=== PATIENT | female | born 1945 | race African-American/Black ===

== ENCOUNTER 2017-03-30 07:39 | Outpatient (CLI) | payer MEDICARE ==
[~2017-03-30] VITALS: Ht 160 cm; Wt 66.4 kg
[2017-03-30] MEDS ORDERED: LISINOPRIL-HCTZ1 T13 PO (08:12)
[2017-03-30] MEDS ORDERED: AMBIEN5 MG PO (08:12)
[2017-03-30] MEDS ORDERED: NORVASC10 MG PO (08:12)
[2017-03-30] MEDS ORDERED: NORCO 7.5/325 T1 TA1 PO (08:13)
[2017-03-30 08:19] VITALS: BP 159/80; Ht 160 cm; Wt 66.4 kg
[2017-03-30] MEDS ORDERED: ADVAIR 100/501 DISK INH (08:28)
[2017-03-30 08:48] LABS: BASOPHILS 2.1 % (0-2); EOSINOPHILS 2.1 % (0-7); HEMATOCRIT 34.2 % (36.0-48.0); HEMOGLOBIN 11.1 g/dL (12-16); LYMPHOCYTES 19.2 % (15-50); MCH 32.5 pg (26.0-34.0); MCHC 32.5 g/dL (31.0-37.0); MEAN PLATELET VOLUME 10.3 fL (7.4-10.4); NEUTROPHILS 63.6 % (40-80); PLATELET COUNT 557 10x3/uL (130-400); RBC 3.42 10x6/uL (4.00-5.40); RDW 15.9 % (11.5-14.5); WBC 4.9 10x3/uL (4.8-10.8)
[2017-03-30 09:02] LABS: CALC OSMOLALITY 286 mosm/kg (275-300); CALCIUM 9.1 mg/dL (8.5-10.1); CARBON DIOXIDE 30.9 mmol/L (21.0-32.0); CHLORIDE - SERUM 105 mmol/L (98-107); CREATININE - SERUM 0.5 mg/dL (0.6-1.3); GLUCOSE 94 mg/dL (74-106); POTASSIUM - SERUM 3.8 mmol/L (3.5-5.1); SODIUM 144 mmol/L (136-145); UREA NITROGEN 13 mg/dL (7-18); eGFR NON AFRICAN AMERICAN > 90 mL/min (90-120)
[2017-03-30 09:11] LABS: INR 1.05 (0.85-1.17); PROTIME 13.5 SECONDS (11.6-15.0)
[2017-03-30 09:12] LABS: APTT 34.9 SECONDS (22.8-39.4)
== END 2017-03-30 15:00 | disposition home or self-care (01) ==
LOC: D.SP 07:39
PROVIDERS: Specialist
DX: R53.83 Other fatigue (principal); D53.9 Nutritional anemia, unspecified; I10 Essential (primary) hypertension; Z01.812 Encounter for preprocedural laboratory examination

== ENCOUNTER → 2017-11-02 17:19 | Outpatient (CLI) | payer MEDICARE ==
[2017-03-30 08:19] VITALS: BMI 25.9
[~2017-11-02 17:19] MED LIST: ADVAIR 100/501 DISK INH; AMBIEN5 MG PO; LISINOPRIL-HCTZ1 T13 PO; NORCO 7.5/325 T1 TA1 PO; NORVASC10 MG PO
== END | disposition home or self-care (01) ==
LOC: D.MAMMO 11:30
DX: Z12.31 Encounter for screening mammogram for malignant neoplasm of breast (principal)

== ENCOUNTER → 2017-12-10 13:02 | Outpatient (CLI) | payer MEDICARE ==
[2017-03-30 08:19] VITALS: BMI 25.9
== END | disposition home or self-care (01) ==
LOC: D.LAB 13:02
DX: R10.84 Generalized abdominal pain (principal); K59.00 Constipation, unspecified

== ENCOUNTER → 2018-01-14 15:11 | Outpatient (CLI) | payer MEDICARE ==
[2017-03-30 08:19] VITALS: BMI 25.9
[2018-01-14 16:26] LABS: BASOPHILS 1.5 % (0-2); EOSINOPHILS 1.5 % (0-7); HEMATOCRIT 31.4 % (36.0-48.0); HEMOGLOBIN 10.1 g/dL (12-16); IMMATURE GRANULOCYTES 1.9 % (0-5); LYMPHOCYTES 14.6 % (15-50); MCH 32.7 pg (26.0-34.0); MCHC 32.2 g/dL (31.0-37.0); MCV 101.6 fL (80.0-100.0); MEAN PLATELET VOLUME 10.7 fL (7.4-10.4); MONOCYTES 11.3 % (2-11); NEUTROPHILS 69.2 % (40-80); PLATELET COUNT 581 10x3/uL (130-400); RBC 3.09 10x6/uL (4.00-5.40); RDW 16.3 % (11.5-14.5); WBC 4.7 10x3/uL (4.8-10.8)
[2018-01-14 16:58] LABS: THYROID STIMULATING HORMONE 1.1 uIU/mL (0.36-3.74)
== END | disposition home or self-care (01) ==
LOC: D.LABREF 15:11
PROVIDERS: Internal Medicine Gastroenterology
DX: Z86.010 Personal history of colon polyps (principal); D64.9 Anemia, unspecified; R19.7 Diarrhea, unspecified; R10.84 Generalized abdominal pain

== ENCOUNTER 2018-02-09 08:00 | Outpatient (CLI) | payer MEDICARE ==
[2017-03-30 08:19] VITALS: BMI 25.9
== END 2018-02-09 08:01 | disposition home or self-care (01) ==
LOC: D.MAMMO 08:00
DX: R92.8 Other abnormal and inconclusive findings on diagnostic imaging of breast (principal)

== ENCOUNTER → 2018-11-01 13:52 | Outpatient (CLI) | payer MEDICARE ==
[2017-03-30 08:19] VITALS: BMI 25.9
== END | disposition home or self-care (01) ==
LOC: D.CT 10-29 10:00
PROVIDERS: ATTEND Internal Medicine Hematology & Oncology
DX: D47.1 Chronic myeloproliferative disease (principal); D64.9 Anemia, unspecified; D69.49 Other primary thrombocytopenia

== ENCOUNTER → 2019-09-12 10:34 | Outpatient (CLI) | payer MEDICARE ==
[2017-03-30 08:19] VITALS: BMI 25.9
== END | disposition home or self-care (01) ==
LOC: D.US 08:30
PROVIDERS: ATTEND Internal Medicine Hematology & Oncology
DX: D47.1 Chronic myeloproliferative disease (principal); D64.9 Anemia, unspecified; D69.49 Other primary thrombocytopenia

== ENCOUNTER 2019-09-15 05:24 | Outpatient (CLI) | payer MEDICARE ==
[~2019-09-15] VITALS: Ht 160 cm; Wt 65.0 kg
[2019-09-15 06:15] LABS: APTT 37.9 SECONDS (22.8-39.4); CALC OSMOLALITY 287 mosm/kg (275-300); CALCIUM 8.9 mg/dL (8.5-10.1); CARBON DIOXIDE 29.6 mmol/L (21.0-32.0); CHLORIDE - SERUM 105 mmol/L (98-107); CREATININE - SERUM 0.7 mg/dL (0.6-1.3); GLUCOSE 101 mg/dL (74-106); INR 1.12 (0.85-1.17); POTASSIUM - SERUM 3.6 mmol/L (3.5-5.1); PROTIME 14.3 SECONDS (11.6-15.0); SODIUM 143 mmol/L (136-145); UREA NITROGEN 20 mg/dL (7-18); eGFR NON AFRICAN AMERICAN 87 mL/min (90-120)
[2019-09-15] MEDS ORDERED: OMEPRAZOLE20 M1 PO (07:04)
[2019-09-15 07:17] VITALS: BP 130/75; Ht 160 cm; Wt 65.0 kg
[2019-09-15 07:34] LABS: BASOPHILS 0.6 % (0-2); EOSINOPHILS 1.7 % (0-7); HEMATOCRIT 29.7 % (36.0-48.0); HEMOGLOBIN 9.4 g/dL (12-16); IMMATURE GRANULOCYTES 2.9 % (0-5); MCHC 31.6 g/dL (31.0-37.0); MCV 104.2 fL (80.0-100.0); MEAN PLATELET VOLUME 9.9 fL (7.4-10.4); MONOCYTES 12.2 % (2-11); NEUTROPHILS 67.6 % (40-80); PLATELET COUNT 644 10x3/uL (130-400); RBC 2.85 10x6/uL (4.00-5.40); RDW 16.8 % (11.5-14.5); WBC 6.5 10x3/uL (4.8-10.8)
--- NOTE | 2019-09-15 09:26 | NUR ---
[id number] PT C/O BACK AND LEFT LEG PAIN SPOKE WITH DR CHAVARRIA VIA PHONE. WILL RX WITH PERCOCET
== END 2019-09-15 10:55 ==
LOC: D.SP 05:24 → D.CT 08:00 → D.SP 08:00
PROVIDERS: General Practice; ATTEND Internal Medicine Hematology & Oncology
DX: D47.1 Chronic myeloproliferative disease (principal); D64.9 Anemia, unspecified; D69.49 Other primary thrombocytopenia; I10 Essential (primary) hypertension

== ENCOUNTER 2020-03-27 17:15 | Outpatient (CLI) | payer MEDICARE ==
[2019-09-15 07:17] VITALS: BMI 25.3
[~2020-03-27 17:15] MED LIST changes: +OMEPRAZOLE20 M1 PO
== END 2020-03-27 23:59 | disposition home or self-care (01) ==
LOC: D.MAMMO 17:15
PROVIDERS: ATTEND Family Medicine
DX: Z12.31 Encounter for screening mammogram for malignant neoplasm of breast (principal)

== ENCOUNTER → 2020-11-26 10:43 | Outpatient (CLI) | payer MEDICARE ==
[2019-09-15 07:17] VITALS: BMI 25.3
== END | disposition home or self-care (01) ==
LOC: D.ECHO 10:05
PROVIDERS: ATTEND Internal Medicine Cardiovascular Disease
DX: R94.31 Abnormal electrocardiogram [ECG] [EKG] (principal)

== ENCOUNTER → 2020-12-06 08:30 | Outpatient (CLI) | payer MEDICARE ==
[2019-09-15 07:17] VITALS: BMI 25.3
== END | disposition home or self-care (01) ==
LOC: D.HCCARDIO 08:30
PROVIDERS: ATTEND Internal Medicine Cardiovascular Disease
DX: I25.10 Atherosclerotic heart disease of native coronary artery without angina pectoris (principal)

== ENCOUNTER 2020-12-25 07:05 | Day surgery (SDC) | payer MEDICARE ==
[~2020-12-25] VITALS: Ht 160 cm; Wt 62.7 kg
--- NOTE | ~2020-12-25 | HEMODYNAMI ---
PATIENT:ANNALISE SANTIAGO MEDICAL RECORD: [id number] : 49 LOCATION:[facility] ADMISSION DATE: 12/25/20 Generatedon:19:09 Patient name: ANNALISE SANTIAGO Patient #: [id number] SSN: [id number] : 1945 Date of study: 12/25/2020 Page: Of Hemodynamic Procedure Report Patient Data Patient Demographics Procedure consent was obtained First Name: ANNALISE Gender: Female Last Name: PAMELA : 1945 [facility] Initial: GAGAN Age: 75 year(s) Patient #: [id number] Race: Black SSN: [id number] Additional ID: [id number] Contact details Address: [address] [place] [address] State: [place] City: [facility] Zip code: [address] Past Medical History Performed procedures and imaging results Date Procedure Procedure Results Comments Stress testing Positive->Intermediate with SPECT MPI risk Allergies Allergen Reaction Date Comments Reported Other allergy 12/25/2020 codeine Admission Admission Data Admission Date: 12/25/2020 Admission Time: 7:05 Admit Source: Other Lab Results Lab Result Date: 12/25/2020 Lab Result Time: 0:00 Biochemistry Name Units Result Min Max BUN mg/dl 18 --(---*)-- 7 18 Creatinine mg/dl 0.8 --(-*--)-- 0.6 1.3 eGFR ml/min 90 --(*---)-- 90 120 AM CBC Name Units Result Min Max Hematocrit % 27.4 *-(----)-- 42 54 Hemoglobin g/dl 8.5 *-(----)-- 13.5 17.5 Procedure Procedure Types Cath Procedure Diagnostic Procedure [facility] w/Coronaries Sedation Charges Moderate Sedation 10-24 minutes Procedure Description Procedure Date Procedure Date: 12/25/2020 Procedure Start Time: 8:48 Procedure End Time: 9:07 Procedure Staff Name Function Stefani Chowdhury RN Nurse Dale Barrett MD Performing Physician Heather Hodge RT Scrub Ashley Cruz RT Monitor Procedure Data Cath Procedure Fluoroscopy Diagnostic fluoroscopy Total fluoroscopy Time: 2 time: 2 min min Diagnostic fluoroscopy Total fluoroscopy dose: 147 dose: 147 mGy mGy Contrast Material Contrast Material Type Amount (ml) Isovue 370 68 Entry Location Entry Primary Successful Side Size Upsize Upsize Entry Closure Succes sful Closure Location (Fr) 1 (Fr) 2 (Fr) Remarks Device Remarks Femoral Right 5 Fr Exoseal artery Estimated blood loss: 5 ml Diagnostic catheters Device Type Used For End Catheter Placement MULTIPACK JL 4.0 5Fr Procedure catheter MULTIPACK 3DRC 5Fr Procedure catheter DIAGNOSTIC AL1 5Fr Procedure catheter ([id number]) MULTIPACK Pigtail 5 Fr Procedure catheter Procedure Complications No complications Procedure Medications Medication Administration Route Dosage 0.9% NaCl I.V. 100 ml/hr Heparin Flush Bag added to field 2 bags (1000units/500ml NS) Oxygen etCO2 Nasal cannula 2 l/min Lidocaine 2% added to field 20 Versed I.V. 1 mg Fentanyl I.V. 50 mcg Versed I.V. 0.5 mg Versed I.V. 0.5 mg Fentanyl I.V. 25 mcg Radial Cocktail added to field 1 syringe (Verapamil 2mg/Nitro 400mcg/Heparin 1500units) Hemodynamics Rest HGB: 8.5 (g/dl) Heart Rate: 49 (bpm) Pressure Samples Time Site Value (mmHg) Purpose Heart Use Rate(bpm) 9:01 LV 138/17,43 Snapshot 52 9:01 AO 137/60(90) Pullback 52 9:01 LV 137/5,20 Pullback 52 Gradients Valve Time Site 1 Site 2 Mean SEP/DFP Peak To Heart Use (mmHg) (sec/min) Peak Rate (mmHg) (bpm) Aortic 9:01 LV AO 5 19 0 52 137/5,20 137/60(90) Calculations Valve P-P Mean Valve Index Valve Source Name Gradient Area Flow (cm2) Aortic 0 5 0 5 Snapshots Pre Cath Intra NCS Post Cath Vital Signs Time Heart Resp SPO2 etCO2 NIBP (mmHg) Rhythm Pain Sedation Rate (ipm) (%) (mmHg) Status Level (bpm) 8:32:19 50 11 92 138/75(115) SB 0 (11) 10(A) , No pain 8:36:29 49 10 97 138/74(117) SB 0 (11) 10(A) , No pain 8:40:41 49 10 98 139/71(113) SB 0 (11) 10(A) , No pain 8:44:53 49 11 98 137/74(113) SB 0 (11) 10(A) , No pain 8:49:05 50 10 99 134/70(111) SB 0 (11) 9(A) , No pain 8:53:12 52 10 97 136/78(112) SB 0 (11) 9(A) , No pain 8:57:22 53 10 97 139/73(119) SB 0 (11) 9(A) , No pain 9:01:34 52 11 97 140/71(112) SB 0 (11) 10(A) , No pain 9:05:46 52 10 98 20.2 136/72(116) SB 0 (11) 10(A) , No pain Medications Time Medication Route Dose Verified Delivered Reason Notes Ef fectiveness by by 8:30:28 0.9% NaCl I.V. 100 Dale Buffie used for ml/hr Arnold Chowdhury RN procedure 8:31:00 Heparin Flush added 2 bags Dale Dale used for Bag to Arnold Barrett MD procedure (1000units/500ml field NS) 8:31:07 Radial Cocktail added 1 Dale Dale used for not (Verapamil to syringe Arnold Barrett MD procedure given 2mg/Nitro field 400mcg/Heparin 1500units) 8:31:19 Oxygen etCO2 2 l/min Dale Buffie used for Nasal Arnold Chowdhury RN procedure cannula 8:31:33 Lidocaine 2% added 20ml Dale Dale for local to vial Arnold Barrett MD anesthetic field 8:47:06 Versed I.V. 1 mg Dale Buffie for Arnold Chowdhury RN sedation 8:47:15 Fentanyl I.V. 50 mcg Dale Buffie for Arnold Chowdhury RN sedation 8:52:02 Versed I.V. 0.5 mg Dale Buffie for Arnold Chowdhury RN sedation 8:58:11 Fentanyl I.V. 25 mcg Dale Buffie for Arnold Chowdhury RN sedation 8:58:43 Versed I.V. 0.5 mg Dale Buffie for Arnold Chowdhury RN sedation Procedure Log Time Note 7:57:23 Informed consent obtained and on chart 7:57:42 Diagnostic Cath Status : Elective 7:59:29 Admit Source: Other 7:59:34 ACC Patient presents with Stable Angina CCS Anginal Class 2--Slight limitation of ordinary activity. 7:59:37 Procedure Status Elective Heart Cath (OP). 7:59:39 Time tracking: Regular hours (M-F 7:00 - 5:00) 7:59:43 Plan of Care:Hemodynamics will remain stable., Cardiac rhythm will remain stable., Comfort level will be maintained., Respiratory function will remain adequate., Patient/ family verbilizes understanding of procedure., Procedure tolerated without complication., Recovers from procedure without complications.. 7:59:52 H&P Date Dictated: 11/28/2020 Within 30 days and on chart.. 7:59:55 Patient NPO since Midnight. 8:00:04 Patient allergic to Other allergycodeine 8:00:09 Alarms reviewed by R. N. 8:00:10 Sharps counted by scrub and verified by R.N. 8:03:00 Stress Test: yes; abnormal ANTERIOR, SEPTAL 8:15:30 Stefani Chowdhury RN sent for patient. Start room use. 8:20:47 Patient received from Pre/Post Procedure Room to CCL 3 Alert and oriented. Tansferred to table in Supine position. 8:20:48 Warm blankets applied, and olivia hugger turned on for patient comfort. 8:20:49 Correct patient and procedure confirmed by team. 8:20:50 ECG and BP/O2 sat monitors applied to patient. 8:20:53 Full Disclosure recording started 8:20:54 Pre-procedure instructions explained to patient. 8:20:55 Pre-op teaching completed and patient verbalized understanding. 8:20:57 Family in waiting room. 8:20:59 Is the patient allergic to Iodine/contrast media? No. 8:21:01 Was the patient premedicated? Yes 8:30:28 0.9% NaCl 100 ml/hr I.V. was administered by Stefani Chowdhury RN; used for procedure; Verbal order read back and verified. 8:31:00 Heparin Flush Bag (1000units/500ml NS) 2 bags added to field was administered by Dale Barrett MD; used for procedure; Verbal order read back and verified. 8:31:04 Vital chart was started 8:31:07 Radial Cocktail (Verapamil 2mg/Nitro 400mcg/Heparin 1500units) 1 syringe added to field was administered by Dale Barrett MD; used for procedure; not given Verbal order read back and verified. 8:31:19 Oxygen 2 l/min etCO2 Nasal cannula was administered by Stefani Chowdhury RN; used for procedure; Verbal order read back and verified. 8:31:33 Lidocaine 2% 20ml vial added to field was administered by Dale Barrett MD; for local anesthetic; Verbal order read back and verified. 8:32:47 Lab Result : eGFR AM 90 ml/min 8::47 Lab Result : Hemoglobin 8.5 g/dl 8::47 Lab Result : BUN 18 mg/dl 8:32:47 Lab Result : Creatinine 0.8 mg/dl 8:32:47 Lab Result : Hematocrit 27.4 % 8:34:48 Is patient on blood thinner?No 8:34:50 Patient diabetic? No. 8:34:51 If diabetic: On Metformin? N/A 8:34:56 Patient not . Patient is over age 55. 8:34:56 ----Pre-sedation anethsthesia assessment.---- 8:34:59 Previous problem with sedation/anesthesia? No ? 8:35:01 Snore? Yes 8:35:02 Sleep apnea? No 8:35:03 Deviated septum? No 8:35:04 Opens mouth fully? Yes 8:35:05 Sticks out tongue? Yes 8:35:07 Airway obstruction? No ? 8:35:08 Dentures? No ? 8:35:12 Pre procedure: right dorsailis pedis pulse 2+ Normal; easily identifiable; not easily obliterated 8:35:15 Modified Abdoul's test Ulnar < 7 seconds 8:35:18 Patient pain scale 0/10 ?. 8:35:26 IV patent on arrival in left forearm with 0.9% NaCl at [facility]. 8:35:44 Lab results completed and on chart. 8:35:50 Right Radial & Right Groin area was prepped with chlora-prep and draped in sterile fashion 8:35:55 Use device set Radial Dx or PCI 8:35:57 ACIST Syringe (91923) opened to sterile field. 8:35:57 Medline Cath Pack ([id number]) opened to sterile field. 8:35:58 Bag Decanter (2002S) opened to sterile field. 8:35:58 ACIST Hand Control (01384) opened to sterile field. 8:35:59 ACIST Manifold (25724) opened to sterile field. 8:36:02 EMERALD Guide Wire (116-337) opened to sterile field. 8:39:08 Baseline sample Acquired. 8:39:13 Rhythm: sinus bradycardia 8:46:43 --------ALL STOP TIME OUT------ 8:46:43 Final Timeout: patient, procedure, and site verified with staff and physician. All members of the team are in agreement. 8:46:45 Right groin site verified by team. 8:46:48 Fire Safety Assessment: A--An alcohol-based skin anteseptic being used preoperatively., C--Open oxygen or nitrous oxide is being used., D--An ESU, laser, or fiber-optic light is being used. 8:46:51 Physical assessment completed. ASA score P 2 - A patient with mild systemic disease as per Dale Barrett MD. 8:46:53 1) 90+ Normal kidney functon but urine findings or structural abnormalities or genetic trait point to kidney disease. 8:46:55 Maximum allowable contrast dose (3.7 X eGFR X 0.75)250 ml. 8:46:58 Sedation plan: IV Moderate Sedation Medication:Versed, Fentanyl 8:47:06 Versed 1 mg I.V. was administered by Stefani Chowdhury RN; for sedation; Verbal order read back and verified. 8:47:11 Procedure started. 8:47:15 Fentanyl 50 mcg I.V. was administered by Stefani Chowdhury RN; for sedation; Verbal order read back and verified. 8:48:40 Local anesthetic to right femoral artery with Lidocaine 2% by Dale Barrett MD.INITIAL ACCESS ONLY 8:48:50 Use device set Multipack Set 8:48:54 DIAGNOSTIC Multipack 5Fr catheter set ([id number]) opened to sterile field. 8:50:32 SHEATH 5FR [place] (FON436) opened to sterile field. 8:50:41 A 5 Fr sheath was inserted into the Right Femoral artery 8:50:53 A MULTIPACK JL 4.0 5Fr catheter was advanced over the wire and used for Procedure. 8:51:52 LCA angiography performed. 8:51:55 Injector settings: Ml/sec: 3, Volume: 6, 8:52:02 Versed 0.5 mg I.V. was administered by Stefani Chowdhury RN; for sedation; Verbal order read back and verified. 8:52:59 Catheter exchanged over wire. 8:53:08 Zero performed for pressure channel P1 8:53:51 A MULTIPACK 3DRC 5Fr catheter was advanced over the wire and used for Procedure. 8:54:49 unable to enage changing diag catheter. 8:54:54 Catheter exchanged over wire. 8:55:35 A DIAGNOSTIC AL1 5Fr catheter ([id number]) was advanced over the wire and used for Procedure. 8:55:54 RCA angiography performed. 8:55:58 Injector settings: Ml/sec: 3, Volume: 6, 8:58:11 Fentanyl 25 mcg I.V. was administered by Stefani Chowdhury RN; for sedation; Verbal order read back and verified. 8:58:43 Versed 0.5 mg I.V. was administered by Stefani Chowdhury RN; for sedation; Verbal order read back and verified. 8:59:51 Catheter exchanged over wire. 9:00:33 A MULTIPACK Pigtail 5 Fr catheter was advanced over the wire and used for Procedure. 9:00:49 LV gram done using VILLEDA 9:01:04 LV hemodynamics recorded. 9:01:07 Injector settings: Ml/sec: 5, Volume: 15, 9:01:22 EF : 45 % 9:01:41 Catheter exchanged over wire. 9:02:19 EXOSEAL 5Fr (EX500) opened to sterile field. 9:02:32 Sheath removed intact; hemostasis achieved with Exoseal to the Right Femoral artery. 9:02:37 Fluoroscopy time 02.00 minutes. 9:02:47 Fluoroscopy dose: 147 mGy 9:02:47 Flurop Dose total: 147 9:02:54 Dose Area Product 11432 mGy/cm. 9:02:58 Contrast amount:Isovue 370 68ml. 9:03:03 Maximum allowable dose exceeded? No. 9:03:05 Sharps counted by scrub and verified by R.N. 9:04:55 Procedure ended.(Physican Out) 9:05:21 Post-op/insertion site Right Femoral artery dressed using a 4 x 4 and Tegaderm. 9:05:26 Post right femoral artery:stable, soft, clean and dry 9:05:28 Post Procedure Pulses reassessed and unchanged 9:05:31 Post procedure: right dorsailis pedis pulse 2+ Normal; easily identifiable; not easily obliterated. 9:05:35 Post-procedure physical assessment completed. ASA score P 2 - A patient with mild systemic disease as per Dale Barrett MD. 9:05:39 Post procedure rhythm: unchanged. 9:05:43 Estimated blood loss: 5 ml 9:05:44 Post procedure instruction explained to patient.Patient verbalizes understanding. 9:05:44 Patient needs reinforcement of post procedure teaching. 9:06:00 Procedure type changed to Cath procedure, Diagnostic procedure, LHC, [facility] w/Coronaries, Sedation Charges, Moderate Sedation 10-24 minutes 9:06:55 Procedure and supply charges have been captured, reviewed, submitted and are correct. 9:06:58 Procedure Complication : No complications 9:07:03 [facility] Findings: mild to moderate CAD (<70%) 9:07:04 Operative report dictated upon procedure completion. 9:07:05 See physician's report for complete and final results. 9:07:07 Report given to Pre/Post Procedure Room. 9:07:09 Patient transfered to Pre/Post Procedure Room with Stretcher. 9:07:11 Procedure ended. 9:07:11 Full Disclosure recording stopped 9:07:16 End room use (Document Last) 9:07:32 End room use (Document Last) 9:08:11 End room use (Document Last) 9:09:10 Vital chart was stopped Device Usage Item Name Manufacture Quantity Catalog Hospital Part Current Minimal L ot# / Number Charge Number Stock Stock Serial# Code ACIST Acist 1 33628 [id number] 016605 334176 20 Syringe Medical (27897) Systems Inc Medline Medline 1 [id number] 669016 45411 836465 5 Cath Pack ([id number]) Bag Microtek 1 783348 01563 756788 5 Decanter Medical Inc. () ACIST Hand Acist 1 68240 963771 163201 471344 5 Control Medical (32162) Systems Inc ACIST Acist 1 85742 550805 843756 143726 5 Manifold Medical (89896) Systems Inc EMERALD Cardinal 1 502-455 473441 968546 590568 5 Guide Wire Health (502-455) DIAGNOSTIC Cardinal 1 [id number] 483331 57282 125068 30 Multipack Ibotta 5Fr catheter set (GM2244) SHEATH 5FR Terumo 1 [id number] 100784 516025 077006 5 [place] ([id number]) MULTIPACK Cardinal 1 500915 5 JL 4.0 5Fr Health catheter MULTIPACK Cardinal 1 210624 5 3DRC 5Fr Health catheter DIAGNOSTIC Cardinal 1 [id number] 618520 238771 203365 15 AL1 5Fr Health catheter ([id number]) MULTIPACK Cardinal 1 105381 5 Pigtail 5 Health Fr catheter EXOSEAL 5Fr Cardinal 1 EX500 234512 941057 873924 10 (EX500) Health Signature Audit [place] Stage Time Signature Unsigned Intra-Procedure 12/25/2020 Ashley Cruz 9:07:32 AM RT(R) Intra-Procedure 12/25/2020 Stefani Chowdhury RN 9:08:11 AM Intra-Procedure 12/25/2020 Dale Barrett MD 9:09:08 AM [facility] [address] [place] [address]
[2020-12-25] MEDS ORDERED: LIPITOR20 MG PO (07:48)
[2020-12-25] MEDS ORDERED: FLUTICASONE PRO16 GM NASAL (07:48)
[2020-12-25] MEDS ORDERED: COREG25 MG PO (07:49)
[2020-12-25] MEDS ORDERED: HYDRALAZINE HCL50 MG PO (07:49)
[2020-12-25] MEDS ORDERED: LISINOPRIL20 MG PO (07:50)
[2020-12-25] MEDS ORDERED: PROTONIX40 MG PO (07:50)
[2020-12-25] MEDS ORDERED: ZOLOFT100 MG PO (07:51)
[2020-12-25] MEDS ORDERED: TRAZODONE HCL50 MG PO (07:51)
[2020-12-25 07:54] VITALS: BP 137/70; Ht 160 cm; Wt 62.7 kg
[2020-12-25 08:10] LABS: ANION GAP 11.8 mmol/L (8-16); CALCIUM 9.8 mg/dL (8.5-10.1); CARBON DIOXIDE 30.6 mmol/L (21.0-32.0); CHOL - HDL RATIO 2.2 ratio (2.3-4.1); CREATININE - SERUM 0.8 mg/dL (0.6-1.3); LDL-HDL RATIO 0.8 ratio (1.5-3.5); POTASSIUM - SERUM 3.4 mmol/L (3.5-5.1)
[2020-12-25 08:17] LABS: BASOPHILS 1.7 % (0-2); EOSINOPHILS 2.6 % (0-7); HEMATOCRIT 27.4 % (36.0-48.0); HEMOGLOBIN 8.5 g/dL (12-16); IMMATURE GRANULOCYTES 1.9 % (0-5); LYMPHOCYTE ABS# 0.71 10x3/uL (1.18-3.74); LYMPHOCYTES 16.9 % (15-50); MCH 28.6 pg (26.0-34.0); MCV 92.3 fL (80.0-100.0); MEAN PLATELET VOLUME 10.6 fL (7.4-10.4); MONOCYTES 15.3 % (2-11); NEUTROPHIL ABS# 2.58 10x3/uL (1.56-6.13); NEUTROPHILS 61.6 % (40-80); RBC 2.97 10x6/uL (4.00-5.40); RDW 18.6 % (11.5-14.5); WBC 4.2 10x3/uL (4.8-10.8)
[2020-12-25 08:25] LABS: PLATELET COUNT 441 10x3/uL (130-400)
--- NOTE | 2020-12-25 09:20 | NUR ---
ARRIVES TO ROOM 7 VIA STRETCHER FROM PURCHASING COORDINATOR S/P HEART CATH. SEE RN ASSESMENT. PT DENIES PAIN OR NEEDS AT THIS TIME, PLAN OF CARE GIVEN TO PT AND SPOUSE WHO IS AT BEDSIDE. CALL LIGHT WITH IN REACH
--- NOTE | 2020-12-25 09:35 | NUR ---
PT RESTING QUIETLY, VSS, SB, RIGHT GROIN SOFT WITH NO OOZING OR BLEEDING NO PALPABLE HEMATOMA, PEDAL PULSE PALPABLE, IV INFUSING PER ORDERS, DENIES PAIN OR NEEDS , CALL LIGHT WITH IN REACH, SPOUSE AT BEDSIDE
--- NOTE | 2020-12-25 09:45 | NUR ---
RESTING QUIETLY, AROUSES EASILY, VSS, SB PER MONITOR, SATS 100% ON 2LNC, RIGHT GROIN SOFT WITH NO OOZING OR BLEEDING, NO PALPABLE HEMATOMA, RIGHT LOWER EXTREMITY WARM WITH PEDAL PULSE PALPABLE, DENIES PAIN OR NEEDS, IV INFUSING PER ORDERS, CALL LIGHT WITHIN REACH
--- NOTE | 2020-12-25 10:00 | NUR ---
EYES CLOSED AROUSES EASILY, LAYING SUPINE, VSS, SB, RIGHT GROIN SOFT WITH NO OOZING OR BLEEDING, NO PALPABLE HEMATOMA, PEDAL PULSE PALPABLE, WIGGLES DIGITS, CAP REFILL WNL, DENIES PAIN OR NEEDS, IV INFUSING PER ORDERS, CALL LIGHT WITHIN REACH
--- NOTE | 2020-12-25 10:10 | NUR ---
DR HERNANDEZ AT BEDSIDE TO SPEAK WITH PT AND SPOUSE
--- NOTE | 2020-12-25 10:30 | NUR ---
RESTING QUIETLY, NO NEEDS OR PAIN , VSS, SB ON MONITORS, RIGHT GROIN WITH OPSITE IN PLACE C/D/I. NO PALPABLE HEMATOMA , PEDAL PULSE PALPABLE , CAP REFILL WNL, SPOUSE AT BEDSIDE, IV INFUSING PER ORDERS, CALL LIGHT WITHIN REACH
--- NOTE | 2020-12-25 10:50 | NUR ---
PLACED ON BEDPAN VOIDS 200CC CLEAR YELLOW URINE
--- NOTE | 2020-12-25 10:58 | NUR ---
PT PLACED IN SEMI FOWLERS POSITION, SANDWICH BOX AND ORANGE JUCIE GIVEN
--- NOTE | 2020-12-25 11:30 | NUR ---
RIGHT GROIN SOFT WITH NO BLEEDING OR OOZING, SOFT WITH NO PALPABLE HEMATOMA, PEDAL PULSE PALPABLE, CAP REFILL WNL, 2OG IV REMOVED FROM LEFT FA CATHETER INTACT 2 X 2 DRESSING APPLIED, DISCHARGE INSTRUCTIONS REVIEWED WITH PT AND SPOUSE VERBALIZED UNDERSTANDING. QUESTIONS AND CONCERNS ADDRESSED, PT DRESSES AND AMBULATES TO BATHROOM VOIDS WITHOUT DIFFICULTY. VSS, SB.
--- NOTE | 2020-12-25 11:45 | NUR ---
PT DISCHARGED PER ORDERS, TAKEN TO FAMILY CAR VIA WHEELCHAIR, PT VOICES NO COMPLAINTS OR CONCERNS AT THIS TIME
== END 2020-12-25 11:45 | disposition home or self-care (01) ==
LOC: D.CATH 07:05
PROVIDERS: ATTEND Internal Medicine Cardiovascular Disease
DX: I25.118 Atherosclerotic heart disease of native coronary artery with other forms of angina pectoris (principal); R94.39 Abnormal result of other cardiovascular function study; I10 Essential (primary) hypertension; E78.5 Hyperlipidemia, unspecified; R07.9 Chest pain, unspecified

== ENCOUNTER → 2021-01-14 07:57 | Outpatient (CLI) | payer MEDICARE ==
[2020-12-25 07:54] VITALS: BMI 24.5
[~2021-01-14 07:57] MED LIST changes: +COREG25 MG PO; +FLUTICASONE PRO16 GM NASAL; +HYDRALAZINE HCL50 MG PO; +LIPITOR20 MG PO; +LISINOPRIL20 MG PO; +PROTONIX40 MG PO; +TRAZODONE HCL50 MG PO; +ZOLOFT100 MG PO
== END | disposition home or self-care (01) ==
LOC: D.US 07:57
PROVIDERS: ATTEND Internal Medicine Hematology & Oncology
DX: D47.1 Chronic myeloproliferative disease (principal); D64.9 Anemia, unspecified; D69.49 Other primary thrombocytopenia; D73.9 Disease of spleen, unspecified; R16.1 Splenomegaly, not elsewhere classified; D64.81 Anemia due to antineoplastic chemotherapy; D51.9 Vitamin B12 deficiency anemia, unspecified